=== PATIENT | female | born 1960 | race African-American/Black ===

== ENCOUNTER 2017-06-01 06:11 | Inpatient (IN) | payer OTHER ==
[2017-05-27 11:31] VITALS: BMI 45.7
[~2017-06-01 06:11] MED LIST: CEFAZOLIN 2 GM in DEXTROSE 5%-WATER - 50 ML IVPB ONE; TRANEXAMIC ACID 1000 MG/10 ML VIAL IVPUSH ONE; VANCOMYCIN 1,000 MG in DEXTROSE 5%-WATER - 250 ML IVPB ONE
[2017-06-01] MEDS ORDERED: SODIUM CHLORIDE 0.9% P/F 10 ML VIAL IJ ONE (06:26)
[2017-06-01] MEDS ORDERED: ROPIVACAINE HCL 0.5% 30ML VIAL ONE (06:26)
[2017-06-01] MEDS ORDERED: DEXAMETHASONE SOD PHOSPHATE/PF 10 MG/ML SDV ONE (06:26)
[2017-06-01] MEDS ORDERED: MIDAZOLAM HCL 2 MG/2 ML SINGLE DOSE VIAL ONE ×2 (06:26→10:20)
[2017-06-01] MEDS ORDERED: TRANEXAMIC ACID 1000 MG/10 ML VIAL ONE (07:20)
[2017-06-01] MEDS ORDERED: ceFAZolin SODIUM 1 GM VIAL ONE (07:20)
[2017-06-01] MEDS ORDERED: ONDANSETRON 4 MG/2 ML VIAL ONE ×2 (07:20→08:04)
[2017-06-01] MEDS ORDERED: DEXAMETHASONE SOD PHOSPHATE 4 MG/1 ML VIAL ONE (07:20)
--- NOTE | 2017-06-01 07:29 | HP ---
HISTORY OF PRESENT ILLNESS Patient is a 57 y/o morbidly obese female with a past medical history of hypertension, OA, and ventral hernia. Patient was admitted for an elective right total knee replacement, Dr Pollock, 06/01/17. PCP: Dr Caro Recent travel: none Family History: father, diabetes Social History: resides at home retired Smoking:none Alcohol:social Drugs: none REVIEW OF SYSTEMS CONSTITUTIONAL: Absent: fever, chills, diaphoresis, generalized weakness, malaise, loss of appetite, weight change HEENT: Absent: rhinorrhea, nasal congestion, throat pain, throat swelling, difficulty swallowing, mouth swelling, ear pain, eye pain, visual changes CARDIOVASCULAR: Absent: chest pain, syncope, palpitations, irregular heart rate, lightheadedness , peripheral edema RESPIRATORY: Absent: cough, shortness of breath, dyspnea with exertion, orthopnea, wheezing, stridor, hemoptysis GASTROINTESTINAL: Absent: abdominal pain, abdominal distension, nausea, vomiting, diarrhea, constipation, melena, hematochezia GENITOURINARY: Absent: dysuria, frequency, urgency, hesitancy, hematuria, flank pain, genital pain MUSCULOSKELETAL: Present: right knee pain Absent: myalgia, arthralgia, joint swelling, back pain, neck pain SKIN: Absent: rash, itching, pallor HEMATOLOGIC/IMMUNOLOGIC: Absent: easy bleeding, easy bruising, lymphadenopathy, frequent infections ENDOCRINE: Absent: unexplained weight gain, unexplained weight loss, heat intolerance, cold intolerance NEUROLOGIC: Absent: headache, focal weakness or paresthesias, dizziness, unsteady gait, seizure, mental status changes, bladder or bowel incontinence PSYCHIATRIC: Absent: anxiety, depression, suicidal or homicidal ideation, hallucinations. PHYSICAL EXAMINATION: Vital Signs Temperature 97.8 F 06/01/17 06:55 Pulse Rate 68 06/01/17 06:55 Respiratory Rate 16 06/01/17 06:55 Blood Pressure 131/81 06/01/17 06:55 O2 Sat by Pulse Oximetry (%) 97 06/01/17 07:02 GENERAL: Awake, alert, and fully oriented, in no acute distress. HEAD: Normal with no signs of trauma. EYES: Pupils equal, round and reactive to light, extraocular movements intact, sclera anicteric, conjunctiva clear. No lid lag. EARS, NOSE, THROAT: Ears normal, nares patent, oropharynx clear without exudates. Moist mucous membranes. NECK: Normal range of motion, supple without lymphadenopathy, JVD, or masses. LUNGS: Breath sounds equal, clear to auscultation bilaterally. No wheezes, and no crackles. No accessory muscle use. HEART: Regular rate and rhythm, normal S1 and S2 without murmur, rub or gallop. ABDOMEN: Soft, nontender, not distended, normoactive bowel sounds, no guarding, no rebound, no masses. No hepatomegaly or splenomegaly. MUSCULOSKELETAL: Normal range of motion at all joints. No bony deformities or tenderness. No CVA tenderness. UPPER EXTREMITIES: 2+ pulses, warm, well-perfused. No cyanosis. No clubbing. No peripheral edema. LOWER EXTREMITIES: 2+ pulses, warm, well-perfused. No calf tenderness. No peripheral edema. RIGHT LOWER EXTREMITY: dressing CDI, hemovac drain noted, serrous sangenous fluid, less than 3 second capillary refill, +3 pedal pulse NEUROLOGICAL: Cranial nerves II-XII intact. Normal speech. Normal gait. PSYCHIATRIC: Cooperative. Good eye contact. Appropriate mood and affect. SKIN: Warm, dry, normal turgor, no rashes or lesions noted, normal capillary refill. Active Medications Generic Name Dose Route Start Last Admin Trade Name Freq PRN Reason Stop Dose Admin Cefazolin Sodium 2 gm/ 50 mls @ 100 mls/hr 05/31/17 15:16 Dextrose IVPB 05/31/17 15:45 ANES-PREOP ONE Vancomycin HCl 1,000 mg/ 250 mls @ 250 mls/hr 05/31/17 15:16 Dextrose IVPB 05/31/17 16:15 ONCE ONE Protocol Tranexamic Acid 1,000 mg 05/31/17 15:16 Tranexamic Acid - IVPUSH 05/31/17 15:17 ONCE ONE ASSESSMENT/PLAN: f/e/n - low sodium diet - replete lytes prn ppx - asa - scd/julio césar - oob - pt - incentive spirometer dispo: requires inpatient admission Problem List - Problem (1) Status post right knee replacement Assessment/Plan: - prn pain medication (oxycodone) with oxycontin 10mg BID - PT as per orthopedist - ASA 325mg BID - monitor cbc, repeat cbc pending for the AM Code(s): Z96.651 - PRESENCE OF RIGHT ARTIFICIAL KNEE JOINT (2) Hypertension Assessment/Plan: - continue home medication, b/p at goal - strict b/p monitoring q4h Code(s): I10 - ESSENTIAL (PRIMARY) HYPERTENSION Visit type - Case Type Case Type: Scheduled Admission - Emergency Emergency Visit: No - New patient This patient is new to me today: Yes Date on this admission: 06/01/17 - Critical Care Critical Care patient: No
[2017-06-01] MEDS ORDERED: ePHEDrine SULFATE 50 MG/1 ML AMPULE ONE (08:00)
[2017-06-01] MEDS ORDERED: ONDANSETRON 4 MG/2 ML VIAL IVPUSH PRN ×2 (10:26→10:58)
[2017-06-01] MEDS ORDERED: PROMETHAZINE HCL 25 MG/1 ML VIAL IVPUSH PRN (10:26)
[2017-06-01] MEDS ORDERED: LACTATED RINGERS SOLUTION 1,000 ML IV SCH ×2 (10:30→11:00)
[2017-06-01] MEDS ORDERED: MAGNESIUM HYDROX 2400MG/30ML ORAL SUSPENSION 30 ML CUP PO PRN (10:58)
[2017-06-01] MEDS ORDERED: MAG HYDROX/AL HYDROX/SIMETH 30 ML UNIT-DOSE CUP PO PRN (10:58)
--- NOTE | 2017-06-01 10:58 | OP ---
Operative Note - Note: Operative Date: 06/01/17 Pre-Operative Diagnosis: Right knee DJD Operation: Right total knee replacement Implants: Eva Triathlon. Femur - 3. Tibia - 4, [id number] stem. Poly - 13mm , TS. Patella - 27mm Surgeon: Dario Pollock Senior Label Specialist: Suhas Pollock Anesthesiologist/ARCHITECTURAL TECHNICIAN: Jeferson Reyez Anesthesia: Spinal Specimens Removed: Bone. Soft tissue Estimated Blood Loss (mls): 0 Drains & Tubes with Location: 1 x deep 10F drain Fluid Volume Replaced (mls): 1,100 Operative Report Dictated: Yes
--- NOTE | 2017-06-01 11:06 | PN ---
Progress Note (short form) - Note Progress Note: 57F s/p R TKA POD #1. -Pain control. -DVT PPx: chemical & mechanical. -Incentive spirometry. -PT/OR/Rehab, OOB. -WBAT RLE. -f/u drain output. -Irma-op Abx: Ancef & Vancomycin. -Admit to medical hospitalist team. -Discharge planning.
[2017-06-01] MEDS: ACETAMINOPHEN 325 MG TABLET (FP) PO SCH ×4 (11:49→23:47)
[2017-06-01] MEDS: oxyCODONE HCL 5 MG TABLET PO PRN (13:43)
[2017-06-01] MEDS ORDERED: HYDROmorphone HCL CARPU-JECT 1 MG/1 ML DISP.SYRIN ONE (14:31)
[2017-06-01] MEDS: HYDROmorphone HCL CARPU-JECT 1 MG/1 ML DISP.SYRIN IVPB PRN ×2 (14:40→18:40)
[2017-06-01] MEDS ORDERED: HYDROmorphone HCL CARPU-JECT 1 MG/1 ML DISP.SYRIN IVPB PRN ×2 (15:03→15:06)
--- NOTE | 2017-06-01 15:39 | OP ---
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 OPERATION PERFORMED: Right posterior stabilized cemented total knee arthroplasty (Powell). ANESTHESIA: Spinal adductor block with conscious sedation. ANTIBIOTICS GIVEN: Kefzol 2 g, vancomycin 1 g, and Kefzol 1 g given at time of release of the tourniquet. OPERATING DETAILS: The patient was correctly identified and brought into the operating room. The right lower extremity was prepped, free draped in the routine manner DuraPrep applied. Midline incision was utilized. The incision was centered over the patella. The dissection was taken through the subcutaneous tissue through to the fat, onto the quadriceps tendon. The quadriceps tendon was split longitudinally, biased medially, curved around the medial side of the patella in a typical parapatellar incision manner. Medial tibial tubercle soft tissue dissection performed as well. The proximal medial tibia was freed off the soft tissue. All soft tissue freed off the underlying tibial bone bed. A Hohmann was placed in parallel to the joint line to hold these tissues out of harm's way. Partial resection of the fat pad performed. The knee was flexed. The patella was capsized. The patellar cut was started with and a cut was made from the quadriceps tendon to the patellar ligament in accordance with the white side. The jig placed was for a 27-mm polyethylene circular button. Once this had been completed, the tibial cut was made with the appropriate extramedullary jig system. This was centered from the footprint of the anterior cruciate ligament to the middle of the talus. The tibial crest was palpable and concordant with the alignment of the extramedullary jig. The cut was made at a joan; it was on the medial side. A large lateral amount of bone was resected due to the severe deformity. Once this had been performed, the tibia was measured for a size 4. The tibia was then prepared appropriately with the appropriate broach and drawer being applied. A stubby size 4 tibial tray was opted for. This was because of obesity. The knee was then flexed. The femoral jig was applied. This cut the femur to 4 degrees of varus and 3 degrees of external rotation. A size 3 femur was opted for. The femoral cuts were made with the appropriate jig system. The measurements of size 3 combined with the tibial cuts brought about an even flexion/extension gap. The flexion/extension gap was appreciated readily both in these areas and completely stable in the coronal plane, sagittal plane, both in flexion of 90 degrees and extension. Patellar tracking was neutral and the alignment was markedly improved. All bony cuts were made with the appropriate jig system for a size 3 femoral component. The bone bed was thoroughly lavaged with saline pulse lavage. Cementings in one stage: Patella, femur, and tibia. This then brought about an easy reduction. We initially trialed with a size 11 tray but because of slight recurvatum, we elected a size 13 polyethylene tray with a constrained condylar arrangement as the posterior stabilized component of the implant. This brought about complete stability of the knee. A size 13 tray inserted with the appropriate locking pin placed into the polyethylene. The wounds were thoroughly lavaged. All extraneous cement was removed. Patellar tracking revealed a negative thumb test, and the gravity test brought about a flexion of about 110 degrees. The wounds were closed as follows: Quadriceps tendon: 1 Vicryl; subcutaneous: 1 and 2-0 Vicryl; skin: 3-0 Monocryl; with Steri-Strips. Drainage: A 1/8-inch Hemovac x1. Tourniquet time: 2 hours. This was a difficult operation because of obesity and difficult deformity operation involved. No complications. MD CHARLA Garcia/[id number]
[2017-06-01] MEDS ORDERED: PT OWN MED DRAWER 7, Y5N ONE (16:33)
[2017-06-01] MEDS: CEFAZOLIN 2 GM/D5W 2 GM/50 ML ML IVPB SCH (18:27)
[2017-06-01] MEDS ORDERED: VANCOMYCIN 1 GRAM (PRE-DOCKED) 1,000 MG/250 ML BAG IVPB ONE (20:00)
[2017-06-01] MEDS: HYDROmorphone HCL CARPU-JECT 2 MG/1 ML DISP.SYRIN IVPB SCH (20:03)
[2017-06-01] MEDS: KETOROLAC TROMETHAMINE 30 MG/1 ML VIAL IVPB SCH (20:22)
[2017-06-01] MEDS: SENNOSIDES/DOCUSATE COMBO (SENNA PLUS) TABLET (UD) PO SCH (21:03)
[2017-06-01] MEDS: GABAPENTIN 300 MG CAPSULE (FP) PO SCH (21:03)
[2017-06-01] MEDS: ASPIRIN 325 MG TABLET PO SCH (21:04)
[2017-06-01] MEDS: oxyCODONE HCL 10 MG SUSTAINED ACTING TABLET PO SCH (21:04)
[2017-06-02] MEDS: KETOROLAC TROMETHAMINE 30 MG/1 ML VIAL IVPB SCH (00:09)
[2017-06-02] MEDS: CEFAZOLIN 2 GM/D5W 2 GM/50 ML ML IVPB SCH (01:10)
[2017-06-02] MEDS: HYDROmorphone HCL CARPU-JECT 2 MG/1 ML DISP.SYRIN IVPB SCH ×4 (03:45→20:42)
[2017-06-02] MEDS: ACETAMINOPHEN 325 MG TABLET (FP) PO SCH ×4 (06:04→23:58)
[2017-06-02 08:15] LABS: HEMATOCRIT 33.7 % (32.4-45.2); HEMOGLOBIN 10.7 GM/dl (10.7-15.3); MCH 25.6 pg (25.7-33.7); MCHC 31.8 g/dl (32.0-36.0); MEAN CELL VOLUME 80.5 fl (80-96); MEAN PLT VOLUME 8.7 fl (7.5-11.1); PLATELET COUNT 283 K/MM3 (134-434); RBC 4.18 M/mm3 (3.60-5.2); RDW 13.3 % (11.6-15.6); WHITE BLOOD COUNT 12.1 K/mm3 (4.0-10.8)
[2017-06-02 08:28] LABS: ANION GAP 9 (8-16); BLOOD UREA NITROGEN 14 mg/dl (7-18); CHLORIDE 102 mmol/L (98-107); CO2 25 mmol/L (22-28); CREATININE 0.9 mg/dl (0.6-1.3); POTASSIUM 4.3 mmol/L (3.5-5.1); SODIUM 136 mmol/L (136-145)
[2017-06-02] MEDS ORDERED: PT OWN MED DRAWER 7, Y5N ONE (09:12)
[2017-06-02] MEDS: SENNOSIDES/DOCUSATE COMBO (SENNA PLUS) TABLET (UD) PO SCH ×2 (09:23→21:25)
[2017-06-02] MEDS: PANTOPRAZOLE 40 MG TABLET (FP) PO SCH (09:24)
[2017-06-02] MEDS: VALSARTAN 160 MG TABLET (UD) PO SCH (09:24)
[2017-06-02] MEDS: ASPIRIN 325 MG TABLET PO SCH ×2 (09:24→21:26)
[2017-06-02] MEDS: GABAPENTIN 300 MG CAPSULE (FP) PO SCH ×2 (09:24→21:26)
[2017-06-02] MEDS: TRIAMTERENE AND HCTZ - 37.5 MG/25 MG CAPSULE PO SCH (09:25)
[2017-06-02] MEDS: oxyCODONE HCL 10 MG SUSTAINED ACTING TABLET PO SCH ×2 (09:25→21:26)
[2017-06-02] MEDS: METOPROLOL SUCCINATE 100 MG TAB.SR.24H (FP) PO SCH (09:25)
[2017-06-02 10:51] LABS: GLUCOSE,RANDOM 130 mg/dL (74-106)
--- NOTE | 2017-06-02 11:52 | PN ---
Physical Exam: SUBJECTIVE: Patient seen and examined, reports pain to right knee, participated in physical therapy today, hemovac dressing was dislodged in the AM. OBJECTIVE: Patient is a 57 y/o female with a past medical history or OA, htn, and ventral hernia. patient was admitted to the medical surgical unit after a right total knee replacement, (Dr Pollock). POD #1. Vital Signs Temperature 98.6 F 06/02/17 06:00 Pulse Rate 78 06/02/17 06:00 Respiratory Rate 18 06/02/17 06:00 Blood Pressure 110/68 06/02/17 06:00 O2 Sat by Pulse Oximetry (%) 95 06/01/17 22:44 GENERAL: The patient is awake, alert, and fully oriented, in no acute distress. HEAD: Normal with no signs of trauma. EYES: PERRL, extraocular movements intact, sclera anicteric, conjunctiva clear. No ptosis. ENT: Ears normal, nares patent, oropharynx clear without exudates, moist mucous membranes. NECK: Trachea midline, full range of motion, supple. LUNGS: Breath sounds equal, clear to auscultation bilaterally, no wheezes, no crackles, no accessory muscle use. HEART: Regular rate and rhythm, S1, S2 without murmur, rub or gallop. ABDOMEN: Soft, nontender, nondistended, normoactive bowel sounds, no guarding, no rebound, no hepatosplenomegaly, no masses. EXTREMITIES: 2+ pulses, warm, well-perfused, no edema. RIGHT LOWER EXTREMITY: dressing removed, hemovac was dislodged, aguacel dressing is clean and dry, intact. NEUROLOGICAL: Cranial nerves II through XII grossly intact. Normal speech, gait not observed. PSYCH: Normal mood, normal affect. SKIN: Warm, dry, normal turgor, no rashes or lesions noted Laboratory Results - last 24 hr 06/02/17 06/02/17 07:30 07:30 WBC 12.1 H RBC 4.18 Hgb 10.7 Hct 33.7 MCV 80.5 MCH 25.6 L MCHC 31.8 L RDW 13.3 Plt Count 283 MPV 8.7 Sodium 136 Potassium 4.3 Chloride 102 Carbon Dioxide 25 Anion Gap 9 BUN 14 Creatinine 0.9 Random Glucose 130 H Calcium 9.0 Active Medications Generic Name Dose Route Start Last Admin Trade Name Freq PRN Reason Stop Dose Admin Acetaminophen 650 mg 06/01/17 12:00 06/02/17 06:04 Tylenol - PO 06/04/17 11:59 650 mg Q6H RADHA Administration Al Hydroxide/Mg Hydroxide 30 ml 06/01/17 10:58 Mylanta Oral Suspension - PO Q4H PRN DYSPEPSIA Aspirin 325 mg 06/01/17 22:00 06/02/17 09:24 Asa - PO 325 mg BID RADHA Administration Gabapentin 300 mg 06/01/17 22:00 06/02/17 09:24 Neurontin - PO 300 mg BID RADHA Administration Hydromorphone HCl 2 mg 06/01/17 20:01 06/02/17 09:31 Dilaudid Injection - IVPB 2 mg Q6H-IV RADHA Administration Magnesium Hydroxide 30 ml 06/01/17 10:58 Milk Of Magnesia - PO PRN PRN CONSTIPATION Metoprolol Succinate 100 mg 06/02/17 10:00 06/02/17 09:25 Toprol Xl - PO 100 mg DAILY RADHA Administration Ondansetron HCl 4 mg 06/01/17 10:58 Zofran Injection IVPUSH Q6H PRN NAUSEA Oxycodone HCl 5 mg 06/01/17 10:26 Roxicodone - PO Q3H PRN PAIN LEVEL 1-5 Oxycodone HCl 10 mg 06/01/17 10:26 06/01/17 13:43 Roxicodone - PO 10 mg Q3H PRN Administration PAIN LEVEL 6-10 Oxycodone HCl 10 mg 06/01/17 22:00 06/02/17 09:25 Oxycontin - PO 06/04/17 10:27 10 mg BID RADHA Administration Pantoprazole Sodium 40 mg 06/02/17 10:00 06/02/17 09:24 Protonix - PO 40 mg DAILY RADHA Administration Senna/Docusate Sodium 2 tablet 06/01/17 22:00 06/02/17 09:23 Pericolace - PO 2 tablet BID RADHA Administration Triamterene/HCTZ 1 cap 06/02/17 10:00 06/02/17 09:25 Dyazide 25/37.5mg PO 1 cap DAILY RADHA Administration Valsartan 320 mg 06/02/17 10:00 06/02/17 09:24 Diovan - PO 320 mg DAILY RADHA Administration ASSESSMENT/PLAN: 1) s/p right TKR, POD #1 - continue diluadid 2mg iv q6h, oxycontin standing, and oxycodone rpn - incentive spirometer - hgb 10.7 stable - PT BID as per orthopedist 2) hypertension - continue home medications, b/p at goal f/e/n - low sodium diet - replete lytes prn ppx - asa - scd/julio césar - oob - pt - incentive spirometer dispo: requires inpatient admission Problem List - Problems (1) Status post right knee replacement Code(s): Z96.651 - PRESENCE OF RIGHT ARTIFICIAL KNEE JOINT (2) Hypertension Code(s): I10 - ESSENTIAL (PRIMARY) HYPERTENSION Visit type - Case Type Case Type: Scheduled Admission - Emergency Emergency Visit: No - New patient This patient is new to me today: No - Critical Care Critical Care patient: No
[2017-06-02] MEDS: oxyCODONE HCL 5 MG TABLET PO PRN ×4 (12:41→23:59)
--- NOTE | 2017-06-02 14:49 | PN ---
Progress Note (short form) - Note Progress Note: 57 yo POD#1 s/p TKA. Patient doing "ok". She is actively participating in PT and using her IS. Pain adequately controlled with IV hydromorphone. Pain mostly posterior as expected. Continue current care.
[2017-06-03] MEDS: HYDROmorphone HCL CARPU-JECT 2 MG/1 ML DISP.SYRIN IVPB SCH ×4 (03:31→20:42)
[2017-06-03] MEDS: ACETAMINOPHEN 325 MG TABLET (FP) PO SCH ×4 (05:08→23:03)
[2017-06-03] MEDS: oxyCODONE HCL 5 MG TABLET PO PRN ×5 (05:09→22:54)
[2017-06-03 08:25] LABS: BASO % 0.2 % (0-2.0); EOS % 2.5 % (0-4.5); HEMATOCRIT 31.1 % (32.4-45.2); HEMOGLOBIN 10.3 GM/dl (10.7-15.3); LYMPH % 16.2 % (8-40); MCH 26.5 pg (25.7-33.7); MCHC 33.3 g/dl (32.0-36.0); MEAN CELL VOLUME 79.8 fl (80-96); MEAN PLT VOLUME 8.6 fl (7.5-11.1); MONO % 9.5 % (3.8-10.2); NEUT % 71.6 % (42.8-82.8); PLATELET COUNT 233 K/MM3 (134-434); RBC 3.89 M/mm3 (3.60-5.2); RDW 13.1 % (11.6-15.6); WHITE BLOOD COUNT 10.4 K/mm3 (4.0-10.8)
[2017-06-03] MEDS: ASPIRIN 325 MG TABLET PO SCH ×2 (09:03→21:10)
[2017-06-03] MEDS: SENNOSIDES/DOCUSATE COMBO (SENNA PLUS) TABLET (UD) PO SCH ×2 (09:03→21:10)
[2017-06-03] MEDS: GABAPENTIN 300 MG CAPSULE (FP) PO SCH ×2 (09:03→21:10)
[2017-06-03] MEDS: METOPROLOL SUCCINATE 100 MG TAB.SR.24H (FP) PO SCH (09:03)
[2017-06-03] MEDS: VALSARTAN 160 MG TABLET (UD) PO SCH (09:03)
[2017-06-03] MEDS: PANTOPRAZOLE 40 MG TABLET (FP) PO SCH (09:03)
[2017-06-03] MEDS: oxyCODONE HCL 10 MG SUSTAINED ACTING TABLET PO SCH ×2 (09:04→21:10)
[2017-06-03 09:34] LABS: ANION GAP 8 (8-16); BLOOD UREA NITROGEN 19 mg/dl (7-18); CALCIUM 8.9 mg/dl (8.4-10.2); CHLORIDE 105 mmol/L (98-107); CO2 25 mmol/L (22-28); CREATININE 1.3 mg/dl (0.6-1.3); GLUCOSE,RANDOM 135 mg/dl (74-106); POTASSIUM 4.2 mmol/L (3.5-5.1); SODIUM 138 mmol/L (136-145)
[2017-06-03] MEDS: TRIAMTERENE AND HCTZ - 37.5 MG/25 MG CAPSULE PO SCH (10:00)
--- NOTE | 2017-06-03 11:46 | DS ---
Physical Exam: SUBJECTIVE: Patient seen and examined, sitting in bedside chair, participated in physical therapy, denies any chest pain or shortness of breath. OBJECTIVE:Patient is a 57 y/o morbidly obese female with a past medical history of hypertension, OA, and ventral hernia. Patient was admitted for an elective right total knee replacement, Dr Pollock, 06/01/17. PCP: Dr Caro Vital Signs Temperature 99.8 F H 06/03/17 06:00 Pulse Rate 88 06/03/17 06:00 Respiratory Rate 19 06/03/17 06:00 Blood Pressure 112/54 06/03/17 06:00 O2 Sat by Pulse Oximetry (%) 94 L 06/03/17 06:00 PHYSICAL EXAM GENERAL: The patient is awake, alert, and fully oriented, in no acute distress. HEAD: Normal with no signs of trauma. EYES: PERRL, extraocular movements intact, sclera anicteric, conjunctiva clear. ENT: Ears normal, nares patent, oropharynx clear without exudates, moist mucous membranes. NECK: Trachea midline, full range of motion, supple. LUNGS: Breath sounds equal, clear to auscultation bilaterally, no wheezes, no crackles, no accessory muscle use. HEART: Regular rate and rhythm, S1, S2 without murmur, rub or gallop. ABDOMEN: Soft, nontender, nondistended, normoactive bowel sounds, no guarding, no rebound, no hepatosplenomegaly, no masses. EXTREMITIES: 2+ pulses, warm, well-perfused, no edema. RIGHT LOWER EXTREMITY: aguacel dressing, CDI, SCD/CASSIE, less than 3 second capillary refill, + 3 pedal pulse NEUROLOGICAL: Cranial nerves II through XII grossly intact. Normal speech, gait not observed. PSYCH: Normal mood, normal affect. SKIN: Warm, dry, normal turgor, no rashes or lesions noted. LABS CBC,CMP WBC 10.4 K/mm3 (4.0-10.8) 06/03/17 07:30 RBC 3.89 M/mm3 (3.60-5.2) 06/03/17 07:30 Hgb 10.3 GM/dl (10.7-15.3) L 06/03/17 07:30 Hct 31.1 % (32.4-45.2) L 06/03/17 07:30 MCV 79.8 fl (80-96) L 06/03/17 07:30 MCH 26.5 pg (25.7-33.7) 06/03/17 07:30 MCHC 33.3 g/dl (32.0-36.0) 06/03/17 07:30 RDW 13.1 % (11.6-15.6) 06/03/17 07:30 Plt Count 233 K/MM3 (134-434) 06/03/17 07:30 MPV 8.6 fl (7.5-11.1) 06/03/17 07:30 Neutrophils % 71.6 % (42.8-82.8) 06/03/17 07:30 Lymphocytes % 16.2 % (8-40) 06/03/17: Monocytes % 9.5 % (3.8-10.2) 06/03/17 07:30 Eosinophils % 2.5 % (0-4.5) 06/03/17 07: Basophils % 0.2 % (0-2.0) 06/03/17 07:30 Sodium 138 mmol/L (136-145) 06/03/17 07:27 Potassium 4.2 mmol/L (3.5-5.1) 06/03/17 07:27 Chloride 105 mmol/L (98-107) 06/03/17 07:27 Carbon Dioxide 25 mmol/L (22-28) 06/03/17 07:27 Anion Gap 8 (8-16) 06/03/17 07:27 BUN 19 mg/dl (7-18) H D 06/03/17 07:27 Creatinine 1.3 mg/dl (0.6-1.3) D 06/03/17 07:27 Random Glucose 135 mg/dl (74-106) H 06/03/17 07:27 Calcium 8.9 mg/dl (8.4-10.2) 06/03/17 07:27 HOSPITAL COURSE: The patient was admitted to the Med-Surg Unit after an elective right total knee replacement, 06/01/17. POD #1, the patient ambulated the hallways with assistance. Narcotic and non-narcotic pain management control was achieved with an oral and IV approach. POD #1, the surgical drain was removed fully intact and without incident. Irma-operative IV ABX were administered. DVT prophylaxis was achieved with SCDs and early ambulation. The patient ambulated with Physical Therapy and patient is requesting discharge to SNF for short term rehab. The discharge instructions and an oral pain management plan were reviewed with the patient. All questions answered. Above plan discussed with Dr. Pollock and agreed. Date of Admission:06/01/17 Date of Discharge: 06/03/17 Minutes to complete discharge: 45 Visit type - Case Type Case Type: Scheduled Admission - Emergency Emergency Visit: No - New patient This patient is new to me today: No - Critical Care Critical Care patient: No
--- NOTE | 2017-06-03 15:45 | PATH ---
Surgical Pathology Report Patient Name: EDWINA HANKS Med. Rec. #: [id number] /Age/Gender: 1960 (Age: 57) / F Account: [id number] Location: [facility] MED-SURG Taken: 06/01/2017 Received: 06/01/2017 Reported: 06/03/2017 Physicians: Dario Pollock M.D. Specimen(s) Received RIGHT KNEE BONES Clinical History Right knee osteoarthritis Final Diagnosis BONE AND SOFT TISSUE, RIGHT KNEE, REPLACEMENT: DEGENERATIVE JOINT DISEASE. Electronically Signed Jeremiah Sylvester M.D. Gross Description Received in formalin labeled "right knee bones," is a 12.5 x 10.0 x 1.3 cm aggregate of multiple lovett-yellow, irregular portions of bone and soft tissue, consistent with knee bones. There are multiple areas of eburnation present, measuring up to 3 cm in greatest dimension. The remaining articular surfaces are lovett-yellow and focally granular. The underlying trabecular bone is yellow and hard. De Icer sections are submitted in one cassette following decalcification. /06/02/2017 saudi06/02/2017
[2017-06-04] MEDS: HYDROmorphone HCL CARPU-JECT 2 MG/1 ML DISP.SYRIN IVPB SCH ×2 (03:37→09:12)
[2017-06-04] MEDS: oxyCODONE HCL 5 MG TABLET PO PRN (05:59)
[2017-06-04] MEDS: ACETAMINOPHEN 325 MG TABLET (FP) PO SCH (06:00)
[2017-06-04 06:38] VITALS: BP 150/62; PULSE 102
[2017-06-04 06:44] VITALS: TEMP 98.8
[2017-06-04] MEDS ORDERED: PT OWN MED DRAWER 7, Y5N ONE (09:07)
[2017-06-04] MEDS: SENNOSIDES/DOCUSATE COMBO (SENNA PLUS) TABLET (UD) PO SCH (09:08)
[2017-06-04] MEDS: VALSARTAN 160 MG TABLET (UD) PO SCH (09:08)
[2017-06-04] MEDS: TRIAMTERENE AND HCTZ - 37.5 MG/25 MG CAPSULE PO SCH (09:08)
[2017-06-04] MEDS: ASPIRIN 325 MG TABLET PO SCH (09:08)
[2017-06-04] MEDS: PANTOPRAZOLE 40 MG TABLET (FP) PO SCH (09:10)
[2017-06-04] MEDS: GABAPENTIN 300 MG CAPSULE (FP) PO SCH (09:11)
[2017-06-04] MEDS: oxyCODONE HCL 10 MG SUSTAINED ACTING TABLET PO SCH (09:11)
== END 2017-06-04 11:58 | disposition home health service (06) | DRG 302 ==
LOC: FM/S 06:11
PROVIDERS: ADMIT Orthopaedic Surgery Orthopaedic Surgery of the Spine; ATTEND Nurse Practitioner Family
PROC: 0SRC0J9 Replacement of Right Knee Joint with Synthetic Substitute, Cemented, Open Approach (ICD-10-PCS; principal; 2017-06-01 07:30)
DX: M17.11 Unilateral primary osteoarthritis, right knee (principal); E66.01 Morbid (severe) obesity due to excess calories; Z68.42 Body mass index [BMI] 45.0-49.9, adult; I10 Essential (primary) hypertension
CPT/HCPCS: 36415; 73560-TC-RT; 80048; 85025; 85027; 88304-TC; 88311-TC; 94010; 94760; 97116-GP; 97161-GP